=== PATIENT | female | born 1950 | race Caucasian/White ===

== ENCOUNTER 2018-11-11 05:55 | Inpatient (IN) ==
--- NOTE | 2018-10-23 07:43 | History & Physical Report ---
Date of Service October 23, 2018 Assessment & Plan (1) Osteoarthritis of right knee: Further care discussed with patient and at this point in time has failed conservative measures and would like to proceed with a Right total knee replacement. Plan on discharge will be home with home health physical therapy. DVT prophalaxis with TEDs, SCDs and will also place on aspirin 81 mg p.o. b.i.d. for a month postop. Patient will have follow up appointment in our office two weeks post op for staple/suture removal and re-evaluation. Patient otherwise has no other questions or concerns. History of Present Illness Chief Complaint: Right Knee pain Primary Care Provider: Gregoria Corral Ms Domingo is a 68 year old female who is here for a PRE-OPERATIVE VISIT, SCHEDULED FOR RIGHT KNEE TKA TO BE PERFORMED BY DR. ALDANA ON 08/12/2018 @ [facility]. The symptoms occur intermittently. The problem is fluctuating. Currently the patient states that the symptoms are moderate-severe. The pain is described as aching, discomforting and throbbing. The symptoms occur intermittently. She rates her current pain as 5/10. The symptoms are aggravated by ascending stairs , descending stairs, daily activities, driving, first steps while awake, kneeling, movement, repetitive activities, sleeping on the affected side, squatting and walking. Maia states that the symptoms are relieved by no specific activity. In addition to right knee pain the patient is also experiencing decreased mobility, difficulty bending, difficulty going to sleep, limping, nighttime awakening, pain, stiffness, tenderness and weakness. Pertinent negatives include chills and fever. The patient has had a previous x- ray. Prior NSAIDs include Aleve and aspirin. She has been treated with a corticosteroid injection on the right side. Patient has been treated with previous visco supplementation. Patient has had previous therapy. She attended physical therapy. Patient has had arthroscopic surgery. Patient had previous right knee arthroscopy in 2000, performed by a provider in [place]. Patient has tried the use of knee brace and cane for ambulation. Allergies Allergy/AdvReac Type Severity Reaction Status Date / Time lisinopril AdvReac Cough Verified 09/19/18 08:03 STEROIDS AdvReac "JITTERY" Uncoded 09/19/18 08:03 Home Medications Home Medications Medication Instructions Recorded Confirmed Type betamethasone dipropionate 1 applic TOPICAL BID 07/11/18 09/19/18 History cholecalciferol (vitamin D3) 1,000 unit PO QAM 07/11/18 09/19/18 History [Vitamin D3] lactobacillus combination no.4 3,000 mmu cells PO DAILY 07/11/18 09/19/18 History [Probiotic] levothyroxine 125 mcg PO QAM 07/11/18 09/19/18 History losartan 100 mg PO QAM 07/11/18 09/19/18 History multivitamin 1 tab PO QAM 07/11/18 09/19/18 History omega 6-uvk-zwi-fish oil [Clune-3] 1 tab PO DAILY 07/11/18 09/19/18 History omeprazole 20 mg PO QPM 07/11/18 09/19/18 History ranitidine HCl 150 mg PO BID 07/11/18 09/19/18 History zolpidem 1 tab PO HS 07/11/18 09/19/18 History atenolol 50 mg PO DAILY 09/19/18 09/19/18 History sertraline 25 mg PO HS 09/19/18 09/19/18 History Past Med/Surg History Medical History Anxiety GERD (gastroesophageal reflux disease) CONTROLLED Hypertension Hypothyroidism Irritable bowel Obesity Osteoarthritis Spinal stenosis Surgical History H/O arthroscopy of left knee H/O arthroscopy of right knee H/O colonoscopy H/O esophagogastroduodenoscopy H/O tubal ligation Hx of tonsillectomy S/P foot surgery, left Social History Current Living Situation: Alone Other Information That Helps Us Care for You: No Feels Safe at Home: Yes Safety Concerns: Feels Safe At This Time Smoking Status: Never smoker Do You Dip or Chew Tobacco: No Second Hand Exposure: No Hx Alcohol Use: Yes Alcohol type: wine Hx Substance Use: No Beliefs That Will Affect Care: None Preferred Language: [place] Rican Communication Ability: Effective Quarry Manager Required: No Review of Systems All systems reviewed & are unremarkable except as noted in HPI & below Physical Exam 2 Constitutional: WD/WN, vitals as above well developed and well nourished; no acute distress Respiratory: normal respiratory effort, lungs clear to auscultation Cardiovascular: RRR, no murmur, no edema Gastrointestinal (Abdomen): normal bowel sounds, soft, nontender, no hepatosplenomegaly Musculoskeletal: Right Knee Physical Exam Strength LE * Hip ROM R * Active ROM - Flexion: 120 degrees, Abduction: 45 degrees, Adduction: 30 degrees , Internal: 10 degrees, External: 20 degrees, Factors: pain, Description: Active painful ROM. Knee ROM L * Active ROM - Flexion: 135 degrees, Extension: 0 degrees, Factors: normal, Description: active pain free range of motion. Passive ROM - Flexion: 135 degrees, Extension: 0 degrees, Factors: normal, Description: passive pain free range of motion. Knee ROM R * Active ROM - Flexion: 125 degrees, Extension: 3 degrees, Factors: pain. Passive ROM - Flexion: 125 degrees, Extension: 3 degrees, Factors: normal, Description: passive pain free range of motion. Strength LE Normal Strength Description - Normal lower extremity: Bilateral. Constitutional Normal No acute distress. Well nourished. Well developed. Hip * Gait: normal. Inspection - Alignment - Right: neutral, Clinical. Swelling - Right: mild. Maximum tenderness - Right: Greater Trochanteric. Abdominal - Right : 5/5. Hip Normal Skin - Right: Normal. Knee * Inspection - Gait: Antalgic. Alignment - Right: varus, Left: neutral. Ecchymosis - Right: negative, Left: none. Effusion - Right: mild, Left: negative. Swelling - Right: mild, Left: none. Flexibility - Right: normal, Left : normal. Maximum tenderness - Right: Medial Joint Line, Left: non-tender. Patella exam - Crepitation - Right: negative, Left: negative. Patella position - Right: neutral, Left: neutral. Tilt - Right: equal, Left: normal. [facility]'s - medial - Right: Positive. Knee Normal Inspection - Atrophy - Right: Absent, Left: Absent. Skin - Right: Normal, Left: Normal. Patella exam - Apprehension - Right: Negative, Left: Negative. Q-angle - Right: Normal, Left: Normal. Yakov's - Right: Negative, Left: Negative. [facility]'s - lateral - Right: Negative, Left: Negative. Megan's - medial - Left: Negative. Posterior drawer - Right: Negative, Left: Negative. Reverse pivot-shift - Right: Negative, Left: Negative. Sag sign - Right: Negative, Left : Negative. Anterior drawer - Right: Negative, Left: Negative. Valgus stress - Right: Negative, Left: Negative. Varus stress - Right: Negative, Left: Negative. Extensor lag - Right: Normal, Left: Normal. Neurovascular LE Normal Neurovascular examination including reflexes, sensation, and pulses is within normal limits. Skin: no rashes, warm and dry Results & Data Diagnostic Findings X-Rays: xrays showing loss of joint space medial compartment, patellofemoral joint. osteophytes noted, subchondral sclerosis, no acute bony pathology.
--- NOTE | 2018-11-03 13:08 | Anesthesiology Consultation ---
Date of Service November 03, 2018 Assessment & Plan (1) Encounter for pre-operative examination: Plan: PCP= 07/23/18= "optimized for knee replacement." Chart Review Chart Review: Acceptable Risk for Surgery and Patient NOT seen in Pre Admission Testing History Surgery Operation Date: 11/11/18 11:10 Proposed Procedures p Right Total Knee Arthroplasty - Gary Donaldson, Height/Weight Height: 5 ft 7 in Weight: 92.986 kg Allergies Allergy/AdvReac Type Severity Reaction Status Date / Time lisinopril AdvReac Cough Verified 09/19/18 08:03 STEROIDS AdvReac "JITTERY" Uncoded 09/19/18 08:03 Medications Home Medications Medication Instructions Recorded Confirmed Last Taken betamethasone dipropionate 1 applic TOPICAL BID 07/11/18 09/19/18 Unknown cholecalciferol (vitamin D3) 1,000 unit PO QAM 07/11/18 09/19/18 Unknown [Vitamin D3] lactobacillus combination no.4 3,000 mmu cells PO DAILY 07/11/18 09/19/18 Unknown [Probiotic] levothyroxine 125 mcg PO QAM 07/11/18 09/19/18 Unknown losartan 100 mg PO QAM 07/11/18 09/19/18 Unknown multivitamin 1 tab PO QAM 07/11/18 09/19/18 Unknown omega 7-jpd-wgo-fish oil [Cherry-3] 1 tab PO DAILY 07/11/18 09/19/18 Unknown omeprazole 20 mg PO QPM 07/11/18 09/19/18 Unknown ranitidine HCl 150 mg PO BID 07/11/18 09/19/18 Unknown zolpidem 1 tab PO HS 07/11/18 09/19/18 Unknown atenolol 50 mg PO DAILY 09/19/18 09/19/18 Unknown sertraline 25 mg PO HS 09/19/18 09/19/18 Unknown Past Medical History Medical History Anxiety GERD (gastroesophageal reflux disease) CONTROLLED Hypertension Hypothyroidism Irritable bowel Obesity Osteoarthritis Spinal stenosis Past Surgical History Surgical History H/O arthroscopy of left knee H/O arthroscopy of right knee H/O colonoscopy H/O esophagogastroduodenoscopy H/O tubal ligation Hx of tonsillectomy S/P foot surgery, left Social History Smoking Status: Never smoker Do You Dip or Chew Tobacco: No Hx Alcohol Use: Yes Alcohol type: wine Hx Substance Use: No Testing Electrocardiogram Date: 07/14/18 Findings: + NSR @ (67) Echocardiogram Date: 03/13/18 No RWMA. EF 60%. No significant valvular disease. Laboratory Results 10/30/18 WBC 8.66 H/H 13.0/42.1 PLATELETS 194 SODIUM 140 POTASSIUM 3.9 CHLORIDE 104 CO2 104 BUN 18.1 CREATININE 0.88 GLUCOSE 91 PT 11.4 INR 1.02 UA NEGATIVE
[2018-11-11] MEDS ORDERED: METOCLOPRAMIDE HCL 10 MG TABLET PO SCH (06:00)
[2018-11-11] MEDS ORDERED: CeleBREX 200 MG CAP PO SCH (06:00)
[2018-11-11] MEDS ORDERED: FAMOTIDINE 20 MG TAB PO SCH (06:00)
[2018-11-11] MEDS ORDERED: GABAPENTIN 300 MG PO SCH (06:00)
[2018-11-11] MEDS ORDERED: dexAMETHasone 4 MG TAB PO SCH (06:00)
[2018-11-11] MEDS ORDERED: TRANEXAMIC ACID 1,000 MG **IV Pre-op IV SCH (06:00)
[2018-11-11] MEDS ORDERED: ACETAMINOPHEN 500 MG TAB PO SCH (06:00)
[2018-11-11] MEDS ORDERED: ROPIVACAINE 0.5% HCL/PF 150 MG, BUPIVACAINE 0.5% MPF 30 ML, EPINEPHrine 30MG/30ML (OR U... INFIL SCH (06:00)
[2018-11-11] MEDS ORDERED: CEFAZOLIN 2000MG 2,000 MG/15 ML SYR IV SCH (06:00)
[2018-11-11] MEDS ORDERED: TRANEXAMIC ACID 1,000 MG **IV Intra-op IV SCH (06:30)
[2018-11-11] MEDS ORDERED: BUPIVACAINE 0.5 % 5 MG/1 ML PF 10ML VIAL ONE (06:31)
[2018-11-11] MEDS ORDERED: ROPIVACAINE 0.5% 5 MG/ML 30 ML VIAL ONE (06:31)
[2018-11-11] MEDS ORDERED: fentaNYL citrate 100 MCG/2 ML VIAL ONE (06:58)
[2018-11-11] MEDS ORDERED: MIDAZOLAM HCL 1 MG/ML 2ML VIAL ONE (06:58)
--- NOTE | 2018-11-11 07:01 | History & Physical Bridge Note ---
Date of Service November 11, 2018 History & Physical Bridge Note I have examined the patient, reviewed the History & Physical and in the interval since the performance of the History & Physical I have noted the following changes of clinical significance: no changes noted
[2018-11-11] MEDS: LR 500ML BOLUS, THEN 15ML/HR IV SCH (07:06)
[2018-11-11] MEDS ORDERED: fentaNYL citrate 100 MCG/2 ML VIAL IV PRN (07:30)
[2018-11-11] MEDS ORDERED: ONDANSETRON INJ 2 MG/ML 2 ML VIAL IV PRN ×2 (07:30→11:33)
[2018-11-11] MEDS ORDERED: ePHEDrine sulfate 50 MG/ML AMP IV PRN (07:30)
[2018-11-11] MEDS ORDERED: ATROPINE SULFATE 0.1 MG/ML 10ML SYR IV PRN (07:30)
[2018-11-11] MEDS ORDERED: POVIDONE-IODINE OP SOLN 30 ML BTL ONE (07:46)
[2018-11-11] MEDS ORDERED: ORTHO JOINT ANESTHETIC ONE (07:46)
[2018-11-11] MEDS ORDERED: BACITRACIN INJ 50,000 UNIT VIAL ONE (07:47)
[2018-11-11] MEDS ORDERED: ePHEDrine sulfate 50 MG/ML SYR ONE (08:44)
[2018-11-11] MEDS ORDERED: PROPOFOL IV EMULSION 10 MG/ML 20 ML VIAL IV ONE (08:44)
[2018-11-11] MEDS ORDERED: LIDOCAINE HCL 2% 2 ML VIAL/AMP(20MG/ML) INFIL ONE (08:44)
--- NOTE | 2018-11-11 09:25 | Operative Report ---
Post Operative Report Pre & Post Diagnosis Operation Date: 11/11/18 08:35 Pre-Op Diagnosis: Right Knee Osteoarthritis Post-Op Diagnosis: Right Knee Osteoarthritis Procedure Operation Date: 11/11/18 08:35 Actual Procedures p Right Total Knee Arthroplasty(Right) utilizing [employer] journey to non- bloc total knee arthroplasty size femur right 5 tibia 5 polyethylene 11 patella 32 esau Donaldson DO Surgeon Gary Donaldson DO Refrigerator Repairman Dez WEBB Estimated Blood Loss 10 Findings Consistent with Post-Op Diagnosis Patient presents with severe end-stage tricompartmental degenerative joint disease with varus alignment subchondral bone cystic changes marginal osteophytes eburnated bone with varus alignment to the knee when pseudo- ligamentous laxity due to bone loss of medial tibia is also moderate to large effusion patient failed attempts at conservative management including physical therapy anti-inflammatories injections presents for total knee arthroplasty Specimens Bone and cartilage Drains Medium bore Hemovac Complications none Disposition Accompanied Patient To Recovery: No Disposition: Recovery Room Indications Patient presents being seen today with points of ongoing pain trouble to her right knee no response to conservative therapy with previous attempts at injections corticosteroid injections Visco supplementation bracing physical therapy relative rest activity modification is failed she presents today for right total knee arthroplasty Description of Procedure After proper prepping and draping of the Right lower extremity anterior midline incision was made over the region of the extensor extensor mechanism after meticulous hemostasis was obtained and maintained in subcutaneous tissues a medial parapatellar incision was made The patella was subluxed lateralward the medial lateral gutter were cleaned from any hypertrophic synovitis and scar tissue of the distal femoral block was placed and the distal femoral osteotomy cut was made subsequently the chamfers anterior and posterior osteotomy cuts were made utilizing the 4-in-1 block the tibia was subsequently subluxed anteriorward medial and ateral meniscal remnants were excised in their entirety remnants of the anterior and posterior cruciate ligaments were excised in their entirety excellent exposure of the proximal tibia was obtained the tibial osteotomy guide was placed on the proximal tibial osteotomy cut was made once again the knee was irrigated with copious amounts of sterile saline solution the patella was subsequently everted lateralward thickened scar tissue around the patella was removed the patella was subsequently cut utilizing a freehand technique and was drilled prepared for final preparation and placement of patella socially flexion-extension gaps were checked and the equal and symmetric trials were placed to the appropriate femoral and tibial trials with poly-spacer being placed for equal flexion and extension gaps and full range of motion including extension to 0 and flexion to 140 the trial components after having been taken to recovery range of motion was subsequently removed meticulous hemostasis was obtained and maintained subsequently a knee block injection of joint cocktail including ropivacaine 0.5% 150 mg. Bupivacaine 0.5 % epinephrine 1-200,030 mL's toradol 30 mg dexamethasone 4 mg ketamine 10 mg clonidine 100 micrograms normal saline solution 30 mg was infiltrated into the soft tissues of the posterior knee medial lateral gutters and periosteal synovium special attention was paid to protect neurovascular structures at all times subsequently trial components having been removed the knee was irrigated with sterile saline solution. debris was removed the proximal tibia was subsequently prepared and was made ready for the placement of the tibial component tibial component was also cemented and tamped into position the femoral component was subsequently placed and cemented in the position the patellar component was subsequently cemented in position because hemostasis once again obtained and maintained wound having been thoroughly irrigated with debridement and debridement lavage was performed as well as a medial parapatellar incision closed with #1 Vicryl in interrupted fashion subcutaneous was closed with #2 Vicryl skin was closed with skin clips. PA-C was necessary for prepping and drapping as well as wound closure of deep fascia Sub cutaneous tissue and skin and was necessary for the case. A sterile compressive dressing was placed patient was taken to recovery in stable condition of report dictated by Mendoza I attest to the content of the Intraoperative Record and any orders documented therein. Any exceptions are noted below. I attest to the content of the Intraoperative Record and any orders documented therein. Any exceptions are noted below.
--- NOTE | 2018-11-11 10:46 | XRay Report ---
RIGHT KNEE 2 VIEWS History: Right total knee arthroplasty. Degenerative arthritis. Postop. FINDINGS: The patient is status post a right total knee arthroplasty. The hardware is intact. No frac ture or dislocation. Surgical drains are in place. IMPRESSION: Right total knee arthroplasty. No evidence for hardware complication. Electronically signed by: Michael Russell M.D. 11/11/2018 10:45 AM
--- NOTE | 2018-11-11 10:58 | Anesthesiology Progress Note ---
Date of Service November 11, 2018 Anesthesia Post Procedure Vital Signs Vital Signs: Temp Pulse Pulse Resp BP Pulse Ox 11/11/18 10:50 47 L 13 119/70 100 11/11/18 10:40 50 L 14 124/75 100 11/11/18 10:30 50 L 10 L 122/69 100 11/11/18 10:20 52 L 12 119/70 100 11/11/18 10:10 36.4 C L 54 L 17 106/61 99 11/11/18 07:08 36.8 C 52 L 18 163/89 H 97 Pain Intensity Right Knee: Pain Intensity: 0 Notes Mental Status: alert / awake / arousable Patient Amnestic to Procedure: Yes Nausea / Vomiting: adequately controlled Pain: adequately controlled Airway Patency, RR, SpO2: stable & adequate BP & HR: stable & adequate Hydration State: stable & adequate Neuraxial Anesthesia: was administered and sensory block is resolving Anesthetic Complications: no major complications apparent and Pt Satisfied with anesthetic care
[2018-11-11] MEDS ORDERED: MAGNESIUM HYDROXIDE SUSP 30 ML UDC PO PRN (11:33)
[2018-11-11] MEDS ORDERED: ALUMINUM/MAGNESIUM SUSP 30 ML UDC PO PRN (11:33)
[2018-11-11] MEDS ORDERED: MoRPHine SULFATE 2 MG/ML CARP IV PRN (11:33)
[2018-11-11] MEDS: SODIUM CHLORIDE 0.9% 1000ML 1,000 ML IV SCH ×2 (12:12→22:31)
--- NOTE | 2018-11-11 12:22 | Internal Medicine Consult Note ---
Date of Consultation November 11, 2018 Assessment & Plan (1) Hypertension: Patient typically takes atenolol 50 and losartan 100. Her blood pressure is acceptable but her post pulse is slightly low we will hold her losartan on 11/12 restarting it on 11/13 (2) Hypothyroidism: Patient typically takes Synthroid 125 this will be continued (3) Depression: Patient typically takes Zoloft 25 this will be continued (4) Osteoarthritis of right knee: OPERATION DATE/TIME 11/11/18 08:35 Right Total Knee Arthroplasty Surgeon: Gary Donaldson (5) Allergy: continue loratidine History of Present Illness Attending Physician: Gary Donaldson, DO History of Present Illness Pt was seen in the company of her daughter, she has no issues she was instructed on proper use of the incentive spirometer by myself Allergies Allergy/AdvReac Type Severity Reaction Status Date / Time Corticosteroids AdvReac Mild JITTERY Verified 11/11/18 12:27 (Glucocorticoids) lisinopril AdvReac Mild Cough Verified 11/11/18 12:27 Home Medications Home Medications Medication Instructions Recorded Confirmed Type betamethasone dipropionate 1 applic TOPICAL BID 07/11/18 09/19/18 History cholecalciferol (vitamin D3) 1,000 unit PO QAM 07/11/18 11/11/18 History [Vitamin D3] lactobacillus combination no.4 3,000 mmu cells PO DAILY 07/11/18 11/11/18 History [Probiotic] levothyroxine 125 mcg PO QAM 07/11/18 11/11/18 History losartan 100 mg PO QAM 07/11/18 11/11/18 History multivitamin 1 tab PO QAM 07/11/18 11/11/18 History omega 1-lvt-muy-fish oil [Alleene-3] 1 tab PO DAILY 07/11/18 11/11/18 History omeprazole 20 mg PO QPM 07/11/18 11/11/18 History ranitidine HCl 150 mg PO BID 07/11/18 11/11/18 History zolpidem 1 tab PO HS 07/11/18 09/19/18 History atenolol 50 mg PO DAILY 09/19/18 11/11/18 History sertraline 25 mg PO HS 09/19/18 11/11/18 History Patient History Medical History Anxiety GERD (gastroesophageal reflux disease) CONTROLLED Hypertension Hypothyroidism Irritable bowel Obesity Osteoarthritis Spinal stenosis Surgical History H/O arthroscopy of left knee H/O arthroscopy of right knee H/O colonoscopy H/O esophagogastroduodenoscopy H/O tubal ligation Hx of tonsillectomy S/P foot surgery, left Social History Current Living Situation: Alone Other Information That Helps Us Care for You: No Feels Safe at Home: Yes Safety Concerns: Feels Safe At This Time Smoking Status: Never smoker Do You Dip or Chew Tobacco: No Hx Alcohol Use: Yes Alcohol type: wine Hx Substance Use: No Beliefs That Will Affect Care: None Preferred Language: Macanese Communication Ability: Effective Flight Communications Specialist Required: No Review of Systems Constitutional: + fatigue and + weakness Respiratory: no cough, no chest congestion and no dyspnea Cardiovascular: no chest pain and no dyspnea on exertion Gastrointestinal: no abdominal pain, no nausea and no vomiting Musculoskeletal: + joint pain (expected post op pain); no swelling Integumentary: no rash and no lesions Physical Exam 2 Vital Signs (Past 24 Hours): Last Vital Signs Temp 36.4 C L 11/11/18 11:59 Pulse 50 L 11/11/18 11:59 Resp 16 11/11/18 11:59 BP 124/74 11/11/18 11:59 Pulse Ox 100 11/11/18 11:59 Constitutional: well developed and well nourished Eyes: PERRL, conjunctivae normal, anicteric sclerae Neck: trachea midline Thyroid: normal thyroid Respiratory: normal respiratory effort, lungs clear to auscultation Cardiovascular: RRR, no murmur, no edema Gastrointestinal (Abdomen): normal bowel sounds, soft, nontender, no hepatosplenomegaly Skin: no rashes, warm and dry Neurologic: PERRL, EOMI, accommodation nl, no face palsy, no dysarthria Psychiatric: A+Ox3, euthymic affect
[2018-11-11] MEDS: ACETAMINOPHEN 500 MG TAB PO SCH ×2 (14:17→22:32)
[2018-11-11] MEDS: CEFAZOLIN 2000MG 2,000 MG/15 ML SYR IV SCH (15:33)
[2018-11-11] MEDS: SENNA 8.6 MG TAB PO SCH (21:00)
[2018-11-11] MEDS: CeleBREX 200 MG CAP PO SCH (21:00)
[2018-11-11] MEDS: DOCUSATE SODIUM 100 MG CAP PO SCH (21:00)
[2018-11-11] MEDS: ASPIRIN 81 MG ECTAB PO SCH (21:00)
[2018-11-11] MEDS: PANTOprazole 40 MG TAB PO SCH (21:01)
[2018-11-11] MEDS: BETAMETHASONE DIP AUG (DIPROLENE) 0.05% CR 15 GM TUBE EXT SCH (21:01)
[2018-11-11] MEDS: SERTRALINE HCL 50 MG TABLET PO SCH (21:02)
[2018-11-11] MEDS: ZOLPIDEM TARTRATE 10 MG TAB PO SCH (22:32)
[2018-11-12] MEDS: CEFAZOLIN 2000MG 2,000 MG/15 ML SYR IV SCH (00:32)
[2018-11-12] MEDS: OXYCODONE HCL IR 5 MG TAB (IMMEDIATE RELEASE) PO PRN ×4 (02:28→22:44)
[2018-11-12] MEDS: ACETAMINOPHEN 500 MG TAB PO SCH ×3 (06:12→22:44)
[2018-11-12] MEDS: LEVOTHYROXINE SODIUM 125 MCG TABLET PO SCH (06:16)
[2018-11-12 06:38] LABS: Hematocrit (blood only) 31.7 % (37-47); Hemoglobin 10.2 g/dL (12.0-16.0); Mean Corpuscular Hgb Conc 32.2 g/dL (32-36); Mean Corpuscular Volume 86.6 fL (80-100); Mean Platelet Volume 11.5 fL (7.4-10.4); Platelet Count 160 K/uL (130-400); RDW Coefficient of Variation 14.1 % (11.5-14.5); RDW Standard Deviation 44.5 fL (36.4-46.3); Red Blood Count 3.66 M/uL (4.2-5.4); White Blood Count 13.58 K/uL (4.8-10.8)
[2018-11-12 07:03] LABS: BUN Creatinine Ratio 15.4 (10-20); Creatinine Clr Calc Pharmacy 93.5 ml/min; Est GFR (African American) 104.6; Est GFR (Non-African American) 90.3; Potassium 4.2 mmol/L (3.5-5.1)
--- NOTE | 2018-11-12 07:58 | Orthopedic Progress Note ---
Date of Service November 12, 2018 Assessment & Plan (1) History of total right knee replacement (TKR): POD #1 s/p Right TKA pt/ot dvt proph with RUCHI/SCD/ASA patient would like rehab will discuss with CM, has 14 steps into her home. Subjective POD #1 s/p right TKA Constitutional: no fever, no chills and no sweats Respiratory: no cough and no dyspnea Cardiovascular: no chest pain Physical Exam 2 Vital Signs (Past 24 Hours): Last Vital Signs Temp 36.5 C 11/12/18 07:50 Pulse 50 L 11/12/18 07:50 Resp 16 11/12/18 03:54 BP 162/82 H 11/12/18 07:50 Pulse Ox 100 11/12/18 07:50 Musculoskeletal: NVDI, calf SNT, negative barbara sign. DP palpable, able to wiggle toes/ankle movement without difficulty. dressing clean dry and intact. Results & Data Laboratory Results Vital Signs Temp 36.5 C 11/12/18 07:50 Pulse 50 L 11/12/18 07:50 Resp 16 11/12/18 03:54 BP 162/82 H 11/12/18 07:50 Pulse Ox 100 11/12/18 07:50 Intake & Output 11/11/18 11/12/18 11/12/18 18:59 06:59 18:59 Intake Total 2206.667 / 2206.667 1763.333 / 1763.333 Output Total 1979 / 1979 1425 / 1425 Balance 226.667 / 226.667 338.333 / 338.333 Weight 94.801 kg Intake: IV 706.667 / 200.946 4655.333 / 1213.333 Lr 1,000 ml @ 999 mls/hr IV . 500 / 500 Q1H1M NICOLAS Rx#:[id number] Nss 1000ML 1,000 ml @ 100 mls/ 206.667 / 206.667 993.333 / 993.333 hr IV .Q10H NICOLAS Rx#:[id number] IV Perioperative 1200 / 1200 Oral 300 / 300 550 / 550 Output: Urine 1625 / 1625 1200 / 1200 Estimated Blood Loss 10 / 10 Drain Output 345 / 345 225 / 225 Right Knee Hemovac 345 / 345 225 / 225 Laboratory Results WBC 13.58 K/uL (4.8-10.8) H 11/12/18 06:25 RBC 3.66 M/uL (4.2-5.4) L 11/12/18 06:25 Hgb 10.2 g/dL (12.0-16.0) L 11/12/18 06:25 Hct 31.7 % (37-47) L 11/12/18 06:25 MCV 86.6 fL (80-100) 11/12/18 06:25 MCH 27.9 pg (25-34) 11/12/18 06:25 MCHC 32.2 g/dL (32-36) 11/12/18 06:25 RDW Std Deviation 44.5 fL (36.4-46.3) 11/12/18 06:25 RDW Coeff of Gris 14.1 % (11.5-14.5) 11/12/18 06:25 Plt Count 160 K/uL (130-400) 11/12/18 06:25 MPV 11.5 fL (7.4-10.4) H 11/12/18 06:25 Sodium 137 mmol/L (136-145) 11/12/18 06:25 Potassium 4.2 mmol/L (3.5-5.1) 11/12/18 06:25 Chloride 108 mmol/L (98-107) H 11/12/18 06:25 Carbon Dioxide 26 mmol/L (21-32) 11/12/18 06:25 Anion Gap 3.0 (3-11) 11/12/18 06:25 BUN 11 mg/dl (7-18) 11/12/18 06:25 Creatinine 0.70 mg/dl (0.6-1.2) 11/12/18 06:25 Est Cr Clr Drug Dosing 93.5 ml/min 11/12/18 06:25 Est GFR ( Amer) 104.6 11/12/18 06:25 Est GFR (Non-Af Amer) 90.3 11/12/18 06:25 BUN/Creatinine Ratio 15.4 (10-20) 11/12/18 06:25 Glucose 89 mg/dl (70-99) 11/12/18 06:25 Calcium 8.0 mg/dl (8.5-10.1) L 11/12/18 06:25 Blood Type B Positive 11/11/18 06:15 Antibody Screen NEGATIVE 11/11/18 06:15
[2018-11-12] MEDS ORDERED: LOSARTAN POTASSIUM 50 MG TAB PO SCH (09:00)
[2018-11-12] MEDS: DOCUSATE SODIUM 100 MG CAP PO SCH ×2 (09:03→20:07)
[2018-11-12] MEDS: LORATADINE 10 MG TAB PO SCH (09:03)
[2018-11-12] MEDS: CeleBREX 200 MG CAP PO SCH ×2 (09:03→20:07)
[2018-11-12] MEDS: BETAMETHASONE DIP AUG (DIPROLENE) 0.05% CR 15 GM TUBE EXT SCH ×2 (09:04→20:10)
[2018-11-12] MEDS: MULTIVITAMIN TAB PO SCH (09:05)
[2018-11-12] MEDS: LACTOBACILLUS ACIDOPHILUS (FLORANEX) TAB PO SCH (09:05)
[2018-11-12] MEDS: ASPIRIN 81 MG ECTAB PO SCH ×2 (09:05→20:07)
[2018-11-12] MEDS: ATENOLOL 50 MG TABLET PO SCH (09:06)
--- NOTE | 2018-11-12 11:01 | Anesthesiology Progress Note ---
Date of Service November 12, 2018 Anesthesia Post Procedure Vital Signs Vital Signs: Temp Pulse Pulse Pulse Resp BP Pulse Ox 11/12/18 07:50 36.5 C 50 L 16 162/82 H 100 11/12/18 03:54 36.5 C 53 L 16 134/69 97 11/11/18 23:44 36.6 C 59 L 16 118/66 96 11/11/18 19:07 36.7 C 56 L 16 125/72 95 11/11/18 15:15 36.7 C 49 L 16 134/76 96 11/11/18 14:20 36.6 C 54 L 16 131/75 96 11/11/18 13:15 56 L 18 111/68 99 11/11/18 12:22 49 L 18 119/77 100 11/11/18 11:59 36.4 C L 50 L 16 124/74 100 11/11/18 11:34 36.4 C L 51 L 16 130/76 97 Pain Intensity Right Knee: Pain Intensity: 0 Notes Mental Status: alert / awake / arousable and participated in evaluation Patient Amnestic to Procedure: Yes Nausea / Vomiting: adequately controlled Pain: adequately controlled Airway Patency, RR, SpO2: stable & adequate BP & HR: stable & adequate Hydration State: stable & adequate Neuraxial Anesthesia: was administered and sensory block resolved Anesthetic Complications: no major complications apparent and Pt Satisfied with anesthetic care
[2018-11-12] MEDS: LR 500ML BOLUS, THEN 15ML/HR IV SCH ×4 (19:02→19:24)
--- NOTE | 2018-11-12 19:24 | Family Medicine Progress Note ---
Date of Service November 12, 2018 Assessment & Plan (1) History of total right knee replacement (TKR): Ms Maia Domingo is a 68 year old woman who we were consulted for on post op day 1 with asymptomatic bradycardia BRADYCARDIA Obtained 12 lead EKG which showed sinus bradycardia Asymptomatic no hypotension, no orthostasis Not concerning at this time HYPERTENSION Blood Pressure elevated today 162/82 Losartan held today for concern of orthostatic hypotension which might inhibit ability to participate in PT Will resume tomorrow morning Continue atenolol at home dose. HYPOTHYROIDISM Continue home synthroid DEPRESSION Continue home sertraline (2) Bradycardia: (3) Hypertension: (4) Hypothyroidism: (5) Depression: (6) Allergy: Supervising Physician Co-Signing Physician Notes I personally examined the patient and verified all mittal points of history and exam, discussed case, and agree with decision making with Dr Lester. Feeling okay in general, she is worried about when she might start to feel knee pain, but she is not really feeling any now. No other complaints right now. Vitals noted, in general she is in no acute distress. Breathing is unlabored no accessory muscle use, right knee is wrapped, skin shows no rashes, no pallor , no icterus. Hypertensionagree with holding off on VICKY receptor wisam for now, given literature is not doing so reduce his perioperative renal impairment and joint replacements. Likely this can safely be resumed tomorrow. Her pressure is running a little high but certainly not in an acute concerning range given her lack of symptoms. Bradycardia-asymptomatic. EKG is sinus DVT prophylaxisper orthopedics Otherwise as above Subjective Maia Domingo is a 68 year old woman who is post op day 1 from her right total knee arthroscopywe are consulted on for bradycardia. She reports no symptoms besides her knee pain. She currently takes atenolol 50mg and losartan 100mg for her hypertension. She has no complaints at this time and is willing and able to participate in all therapy. Constitutional: no fever, no chills, no body aches, no fatigue and no weakness Respiratory: no cough, no chest congestion and no dyspnea Cardiovascular: no chest pain, no dyspnea, no palpitations, no lightheadedness and no syncope Gastrointestinal: no nausea and no vomiting Physical Exam 2 Vital Signs (Past 24 Hours): Last Vital Signs Temp 36.7 C 11/12/18 15:44 Pulse 49 L 01/09/19 15:44 Resp 16 11/12/18 15:44 BP 121/70 11/12/18 15:44 Pulse Ox 97 11/12/18 15:44 Constitutional: well developed and well nourished; no acute distress Respiratory: normal respiratory effort, lungs clear to auscultation Cardiovascular: RRR, no murmur, no edema Gastrointestinal (Abdomen): Inspection/Auscultation: abdomen normal to inspection; abdomen not distended Percussion/Palpation: abdomen soft; abdomen nontender
[2018-11-12] MEDS: SENNA 8.6 MG TAB PO SCH (20:07)
[2018-11-12] MEDS: SERTRALINE HCL 50 MG TABLET PO SCH (20:07)
[2018-11-12] MEDS: PANTOprazole 40 MG TAB PO SCH (20:07)
[2018-11-12] MEDS: ZOLPIDEM TARTRATE 10 MG TAB PO SCH (22:43)
[2018-11-13] MEDS: LEVOTHYROXINE SODIUM 125 MCG TABLET PO SCH (06:10)
[2018-11-13] MEDS: ACETAMINOPHEN 500 MG TAB PO SCH ×2 (06:14→13:40)
--- NOTE | 2018-11-13 07:28 | Orthopedic Progress Note ---
Date of Service November 13, 2018 Assessment & Plan (1) History of total right knee replacement (TKR): POD #2 s/p Right TKA pt/ot dvt proph with RUCHI/SCD/ASA after doing PT yesterday, patient feels ok to go home. will d/c home with HHPT later today Subjective POD #2 s/p right TKA denies CP/SOB denies Fever/Chills Physical Exam 2 Vital Signs (Past 24 Hours): Last Vital Signs Temp 36.6 C 11/12/18 23:13 Pulse 58 L 11/12/18 23:13 Resp 16 11/12/18 23:13 BP 114/72 11/12/18 23:13 Pulse Ox 97 11/12/18 23:13 Musculoskeletal: NVDI, calf SNT, negative barbara sign. DP palpable, able to wiggle toes/ankle movement without difficulty. prineo dressing clean dry and intact. expected post-operative bruising noted.
[2018-11-13] MEDS: CeleBREX 200 MG CAP PO SCH (08:57)
[2018-11-13] MEDS: MULTIVITAMIN TAB PO SCH (08:57)
[2018-11-13] MEDS: LORATADINE 10 MG TAB PO SCH (08:57)
[2018-11-13] MEDS: ATENOLOL 50 MG TABLET PO SCH (08:58)
[2018-11-13] MEDS: DOCUSATE SODIUM 100 MG CAP PO SCH (08:59)
[2018-11-13] MEDS: LACTOBACILLUS ACIDOPHILUS (FLORANEX) TAB PO SCH (08:59)
[2018-11-13] MEDS: ASPIRIN 81 MG ECTAB PO SCH (08:59)
[2018-11-13] MEDS ORDERED: LOSARTAN POTASSIUM 50 MG TAB PO SCH (09:00)
[2018-11-13] MEDS: BETAMETHASONE DIP AUG (DIPROLENE) 0.05% CR 15 GM TUBE EXT SCH (09:01)
[2018-11-13] MEDS: OXYCODONE HCL IR 5 MG TAB (IMMEDIATE RELEASE) PO PRN ×2 (09:10→13:39)
--- NOTE | 2018-11-13 22:00 | Family Medicine Progress Note ---
Date of Service November 13, 2018 Assessment & Plan (1) History of total right knee replacement (TKR): Ms Maia Domingo is a 68 year old woman who we were consulted for on post op day 2 with asymptomatic bradycardia BRADYCARDIA Obtained 12 lead EKG which showed sinus bradycardia Asymptomatic no hypotension, no orthostasis Not concerning at this time HYPERTENSION Atenolol held today Advised restarting losartan Okay to discharge on home medications and follow up with PCP for any hypertensive changes HYPOTHYROIDISM Continue home synthroid DEPRESSION Continue home sertraline (2) Bradycardia: (3) Hypertension: (4) Hypothyroidism: (5) Depression: (6) Allergy: Supervising Physician Co-Signing Physician Notes I personally examined the patient and verified all mittal points of history and exam, discussed case, and agree with decision making with Dr Lester. Feeling okay in general, ready to go home Vitals noted, in general she is in no acute distress. Breathing is unlabored no accessory muscle use, right knee is wrapped, skin shows no rashes, no pallor , no icterus. Hypertensionresume home meds, outpt f/u Bradycardia-asymptomatic. EKG is sinus, outpt f/u DVT prophylaxisper orthopedics Otherwise as above, medically stable for home Subjective Maia Domingo is a 68 year old woman who is post op day 2 from her right total knee arthroscopy we are consulted on for bradycardia. She reports no symptoms besides her knee pain. She currently takes atenolol 50mg and losartan 100mg for her hypertension. She has no complaints at this time and has been doing well with physical therapy. Physical Exam 2 Vital Signs (Past 24 Hours): Last Vital Signs Temp 36.7 C 11/13/18 13:33 Pulse 51 L 11/13/18 13:33 Resp 16 11/13/18 13:33 BP 114/75 11/13/18 13:33 Pulse Ox 98 11/13/18 13:33 Constitutional: well developed and well nourished; no acute distress Respiratory: normal respiratory effort, lungs clear to auscultation Cardiovascular: RRR, no murmur, no edema Gastrointestinal (Abdomen): Inspection/Auscultation: abdomen normal to inspection; abdomen not distended Percussion/Palpation: abdomen soft; abdomen nontender
--- NOTE | 2018-11-17 18:10 | Discharge Summary ---
DISCHARGE DIAGNOSIS: Degenerative joint disease, right knee. SECONDARY DIAGNOSES: Anxiety, gastroesophageal reflux disease, hypertension, hypothyroidism, irritable bowel syndrome, obesity, osteoarthritis, spinal stenosis. CONSULTS: Dr. Davies. COMPLICATIONS: None. PROCEDURES: Right total knee arthroplasty performed by Dr. Donaldson on 11/11/2018. BRIEF HISTORY: As dictated in history and physical. HOSPITAL SUMMARY: The patient was admitted on the above date and had the above-noted surgery performed, which she tolerated well. On first postoperative day, the patient was without complaints and was feeling well. Vital signs are stable, afebrile. Neurovascularly intact. Calves are soft, nontender. Dressings clean, dry and intact and the patient was started on physical therapy protocol and continued on DVT prophylaxis and pain management. Hemoglobin was 10.2 and the patient was continued on medical management per [facility]. By the second postoperative day, the patient was doing well, had no complaints. Vital signs were stable, afebrile. Neurovascularly intact. Calves are soft, nontender. Prineo dressing was clean, dry and intact and remaining medically stable. They will continue on her PT protocol and was progressing well and the patient was remaining stable and Medicine Service felt that the patient was medically stable for discharge and they were discharged to home with home health services. For further review, please see chart. LABORATORY AND X-RAY DATA: As per chart. DISCHARGE INSTRUCTIONS: The patient was discharged to home in satisfactory condition on 11/13/2018. DIET: Regular. ACTIVITY: Weightbearing as tolerated on the right lower extremity with walker. Follow TK instruction sheets and special care instructions as noted. Follow up with Dr. Donaldson in 2 weeks. The patient is to call for appointment if one has not been made for you. DISCHARGE MEDICATIONS: Acetaminophen 1000 mg p.o. q. 8 hours, aspirin 81 mg p.o. b.i.d. for 30 days, betamethasone 1 application exterior b.i.d., Celebrex 200 mg p.o. b.i.d., Colace 100 mg p.o. b.i.d., levothyroxine 125 mcg p.o. daily, loratadine 10 mg p.o. q.a.m., oxycodone 5-10 mg p.o. q. 4 hours p.r.n. Resume home meds as listed.
== END 2018-11-13 16:24 | disposition home health service (06) | DRG 470 ==
LOC: ASU 05:55 → 3E 10:20
DX: Z79.899 Other long term (current) drug therapy; K58.9 Irritable bowel syndrome, unspecified; F32.9 Major depressive disorder, single episode, unspecified; Z88.8 Allergy status to other drugs, medicaments and biological substances; E03.9 Hypothyroidism, unspecified; M17.11 Unilateral primary osteoarthritis, right knee; K21.9 Gastro-esophageal reflux disease without esophagitis; M21.161 Varus deformity, not elsewhere classified, right knee; M25.461 Effusion, right knee; R00.1 Bradycardia, unspecified; F41.9 Anxiety disorder, unspecified; Z91.09 Other allergy status, other than to drugs and biological substances; I10 Essential (primary) hypertension; Z68.32 Body mass index [BMI] 32.0-32.9, adult; E66.9 Obesity, unspecified

== ENCOUNTER 2022-11-28 06:41 | Observation (INO) ==
--- NOTE | 2022-11-01 14:42 | PAT Medication Instructions ---
Medication Instructions Date of Service November 01, 2022 Home Medications Medication Instructions Recorded oxycodone 5 mg tablet 5 - 10 mg PO Q4H PRN pain #30 tabs 11/13/18 betamethasone dipropionate 0.05 % topical cream 1 applic topical BID PRN cholecalciferol (vitamin D3) 25 mcg (1,000 unit) tablet (Vitamin D3) 1,000 unit PO QAM lactobacillus combination no.4 3 billion cell capsule (Probiotic) 3,000 mmu cells PO QAM levothyroxine 125 mcg tablet 125 mcg PO QAM losartan 100 mg tablet 100 mg PO QAM multivitamin 1 tab PO QAM omeprazole 20 mg capsule,delayed release 20 mg PO HS zolpidem 10 mg tablet 1 tab PO HS atenolol 50 mg tablet 50 mg PO PM sertraline 50 mg tablet 25 mg PO HS oxycodone 5 mg tablet 5 - 10 mg PO Q4H PRN acetaminophen 500 mg tablet (Pain Reliever (acetaminophen)) 1,000 mg PO Q8 PRN famotidine 20 mg tablet (Pepcid) 20 mg PO QAM STOP taking 24 hours before surgery betamethasone dipropionate 0.05 % topical cream 1 applic topical BID PRN DO NOT take the morning of surgery cholecalciferol (vitamin D3) 25 mcg (1,000 unit) tablet (Vitamin D3) 1,000 unit PO QAM lactobacillus combination no.4 3 billion cell capsule (Probiotic) 3,000 mmu cells PO QAM losartan 100 mg tablet 100 mg PO QAM multivitamin 1 tab PO QAM Take morning of surgery With a small sip of water, OTHERWISE NOTHING TO EAT OR DRINK AFTER MIDNIGHT: levothyroxine 125 mcg tablet 125 mcg PO QAM oxycodone 5 mg tablet 5 - 10 mg PO Q4H PRN(if needed) acetaminophen 500 mg tablet (Pain Reliever (acetaminophen)) 1,000 mg PO Q8 PRN (if needed) famotidine 20 mg tablet (Pepcid) 20 mg PO QAM Take evening before surgery omeprazole 20 mg capsule,delayed release 20 mg PO HS zolpidem 10 mg tablet 1 tab PO HS atenolol 50 mg tablet 50 mg PO PM sertraline 50 mg tablet 25 mg PO HS oxycodone 5 mg tablet 5 - 10 mg PO Q4H PRN(if needed) acetaminophen 500 mg tablet (Pain Reliever (acetaminophen)) 1,000 mg PO Q8 PRN (if needed) Other Notes If you have any questions please call us at [phone] or [phone] or [phone] or [phone]
--- NOTE | 2022-11-08 12:19 | Anesthesiology Consultation ---
Date of Service November 08, 2022 Assessment & Plan (1) Encounter for pre-operative examination: - Case discussed in detail with Dr. Wilson who advised pt is acceptable to proceed with surgery without further evaluation or testing from his standpoint. - Outpatient joint assessment: Patient is currently scheduled for inpatient pathway. If re-evaluated pending system levels during current pandemic/surgeon requests outpatient pathway, patient is acceptable candidate for outpatient joint program from anesthesia standpoint pending surgeon's office assessment of pt motivation/support/completion of same day joint program preop requirements. Chart Review Chart Review: Acceptable Risk for Surgery and Patient seen in Pre Admission Testing Teaching & Discussion Pre-Anesthesia Teaching/Discussion Notes: Instructed NPO after midnight before surgery, except medications with 15 cc of water. Medication instructions provided according to the PAT guidelines. History Surgery Operation Date: 11/21/22 11:00 Proposed Procedures p Left Total Knee Arthroplasty - Gary Donaldson DO Height/Weight Height: 5 ft 7 in Weight: 103.9 kg Allergies Allergy/AdvReac Type Severity Reaction Status Date / Time Corticosteroids AdvReac Mild JITTERY Verified 11/01/22 13:11 (Glucocorticoids) lisinopril AdvReac Mild Cough Verified 11/01/22 13:11 Medications Home Medications Medication Instructions Recorded Confirmed Last Taken betamethasone dipropionate 0.05 % 1 applic topical BID PRN Rash 07/11/18 Unknown topical cream cholecalciferol (vitamin D3) 25 1,000 unit PO QAM 07/11/18 11/01/22 11/08/18 mcg (1,000 unit) tablet (Vitamin D3) lactobacillus combination no.4 3 3,000 mmu cells PO QAM 07/11/18 11/01/22 11/08/18 billion cell capsule (Probiotic) levothyroxine 125 mcg tablet 125 mcg PO QAM 07/11/18 11/01/22 11/10/18 losartan 100 mg tablet 100 mg PO QAM 07/11/18 11/01/22 11/10/18 multivitamin 1 tab PO QAM 07/11/18 11/01/22 11/04/18 omeprazole 20 mg capsule,delayed 20 mg PO HS 07/11/18 11/01/22 11/10/18 21:30 release zolpidem 10 mg tablet 1 tab PO 07/11/18 11/01/22 Unknown atenolol 50 mg tablet 50 mg PO PM 09/19/18 11/01/22 11/11/18 05:00 sertraline 50 mg tablet 25 mg PO HS 09/19/18 11/01/22 11/10/18 19:00 oxycodone 5 mg tablet 5 - 10 mg PO Q4H PRN pain #30 tabs 11/13/18 11/01/22 Unknown acetaminophen 500 mg tablet (Pain 1,000 mg PO Q8 PRN Pain 11/01/22 11/01/22 Unknown Reliever (acetaminophen)) famotidine 20 mg tablet (Pepcid) 20 mg PO QAM 11/01/22 11/01/22 Unknown Past Medical History Medical History Anxiety associated palpitations, denies associated lightheadedness or dizziness or other instances of palpitations GERD (gastroesophageal reflux disease) controlled, stable per pt Hiatal hernia History of COVID-22 April 2022 > not hospitalized Hypertension controlled, stable per pt Hypothyroidism Irritable bowel Obesity Spinal stenosis Patient denies h/o stroke, seizures, heart attack, heart failure, DM, blood clots or blood transfusions. Exercise / Class Metabolic Activity II 4-5 Yardwork/Stairs/Walk up hill (occ SOB with 1 FOS, denies CP) Past Surgical History Surgical History H/O arthroscopy of left knee H/O arthroscopy of right knee H/O colonoscopy H/O esophagogastroduodenoscopy H/O tubal ligation History of breast biopsy benign History of cataract surgery bilat History of total right knee replacement 11/11/18 SAB at L3-L4 1 attempt + PNB. Hx of tonsillectomy S/P foot surgery, left Past Anesthesia History No Hx of Anesthesia Complications and No Family Hx of Anesthesia Complications History of PONV No Hx of PONV and No Hx of Motion Sickness Social History Smoking Status: Never smoker Do You Dip or Chew Tobacco: No Hx Alcohol Use: No Hx Substance Use: No substance use type: does not use Review of Systems Snoring, denies witnessed apneas. Pt reports intermittent headaches since cataract surgery noticing association to stress with her mother's illness and adjusting to reading glasses s/p cataract surgery. Denies change or worsening. Patient denies chest pain, shortness of breath, dyspnea on exertion, fever, chills, cough, or wheezing. Physical Exam Vital Signs Vitals BP 153/84 P 54 TEMP 98.3 SP02 98% on RA RESP 17 Physical Full cervical extension range of motion without pain TMD 3.5 finger breadths Mallampati Score 3 Dentition: intact, partial bridge left upper side; denies chipped or loose teeth, or implants Lungs: normal respiratory effort. Clear throughout to auscultation, no adventitious breath sounds Cardiac: regular rate and rhythm, no murmurs noted Carotid arteries: negative bruit bilat Lab Results Anesthesia Preop Results Results Anesthesia Widget: WBC 8.96 K/ul (4.8-10.8) 11/08/22 Hgb 13.3 g/dl (12.0-16.0) 11/08/22 Hct 40.5 % (34.1-44.9) 11/08/22 Plt 191 K/uL (130-400) 11/08/22 Na 136 mmol/L (136-145) 11/08/22 K 4.4 mmol/L (3.5-5.1) 11/08/22 Cl 100 mmol/L (98-107) 11/08/22 CO2 30 mmol/L (21-32) 11/08/22 BUN 20 mg/dl (6-23) 11/08/22 Creat 0.90 mg/dl (0.6-1.2) 11/08/22 Glucose Level 112 mg/dl (70-99(Fasting)) H 11/08/22 PT 10.3 Seconds (9.0-12.0) 11/08/22 PTT 28.2 Seconds (21.0-31.0) 11/08/22 INR 1.0 (0.9-1.1) 11/08/22 HA1c 6.3 % (4.5-5.6) H 11/08/22 Urine Color Yellow 11/08/22 Urine Appearance Clear (Clear) 11/08/22 Urine pH 6.0 (4.5-7.5) 11/08/22 Urine Specific [place] 1.014 (1.000-1.030) 11/08/22 Urine Protein Negative (Negative) 11/08/22 Urine Glucose (UA) Negative (Negative) 11/08/22 Urine Ketones Negative (Negative) 11/08/22 Urine Blood Negative (Negative) 11/08/22 Urine Nitrite Negative (Negative) 11/08/22 Urine Bilirubin Negative (Negative) 11/08/22 Urine Urobilinogen Negative (Negative) 11/08/22 Urine Leukocyte Esterase Negative (Negative) 11/08/22 Blood Type B Positive 11/08/22 Antibody Screen NEGATIVE 11/08/22 Testing Electrocardiogram Date: 11/08/22 Sinus bradycardia, rate 56 bpm Chest X-Ray Date: 11/08/22 No lines and tubes are seen. The cardiomediastinal silhouette is normal. The lungs are clear. No evidence of pleural effusion or pneumothorax. IMPRESSION: No acute chest disease. Stress Test Date: 04/01/19 Exercise MPHR 78% METS 7 Uninterpretable for ischemia per report as patient did not achieve target HR COVID-19 Risk Screen Screening Information COVID-19 Screen Date: 11/08/22 Exposure 21 Days Family/Household +COVID Last 21 Days: No Exposure 10 Days Any COVID Exposure Last 10 Days: No Symptoms Last 10 Days Experienced COVID Sx Last 10 Days: No + COVID 0-90 Days COVID + in Last 0-90 Days: No
--- NOTE | 2022-11-08 12:24 | History & Physical Report ---
Date of Service November 08, 2022 date of surgery: 11/21/22 Procedure: Left Total Knee Arthroplasty Surgeon: Gary Donaldson Assessment & Plan (1) Arthritis of knee, left: Plan: Risks and benefits of procedure discussed in detail today, patient would like to proceed with a left total knee replacement at [facility] as scheduled. will obtain medical clearance prior to surgery as well as obtain PATs at [facility]. Will place on ASA 81mg po bid x 1 month post op, f/u 2 weeks post op for routine post-operative care and x-ray, sooner if having any problems. will make arrangements for HHPT at the time of discharge. At this point in time, has failed conservative measures and would like to proceed with surgical intervention. The risks and benefits have been discussed including, but not limited to, risk of infection, nerve injury, stiffness, loss of motion, failure to improve, etc. Reasonable outcomes and options of treatment were discussed. An explanation of appropriate alternatives to the procedure that may be advantageous were discussed and their risks and benefits, as well as the risks and benefits of not proceeding with treatment. I offered to answer any additional inquiries concerning the treatment involved. All the patient's questions were answered. The patient is agreeable, understanding of the treatment plan and alternatives, and wishes to proceed with the treatment plan History of Present Illness Chief Complaint: left knee pain Primary Care Provider: Gregoria Corral Maia is a pleasant 72-year-old female who presents for preop evaluation prior to left total knee replacement. She has been having pain in this knee for many years now which is gradually worsened and is now affecting her daily activities including walking standing using stairs. She has tried and failed prior corticosteroid injection as well as viscosupplementation without relief. She is tried oral anti-inflammatories and Tylenol as well. at This point time her pain is affecting her daily activities and like to proceed with a left total knee replacement Allergies Allergy/AdvReac Type Severity Reaction Status Date / Time Corticosteroids AdvReac Mild JITTERY Verified 11/01/22 13:11 (Glucocorticoids) lisinopril AdvReac Mild Cough Verified 11/01/22 13:11 Home Medications Medication Instructions Recorded Confirmed Type betamethasone dipropionate 0.05 % 1 applic topical BID PRN Rash 07/11/18 11/01/22 History topical cream cholecalciferol (vitamin D3) 25 1,000 unit PO QAM 07/11/18 11/01/22 History mcg (1,000 unit) tablet (Vitamin D3) lactobacillus combination no.4 3 3,000 mmu cells PO QAM 07/11/18 11/01/22 History billion cell capsule (Probiotic) levothyroxine 125 mcg tablet 125 mcg PO QAM 07/11/18 11/01/22 History losartan 100 mg tablet 100 mg PO QAM 07/11/18 11/01/22 History multivitamin 1 tab PO QAM 07/11/18 11/01/22 History omeprazole 20 mg capsule,delayed 20 mg PO HS 07/11/18 11/01/22 History release zolpidem 10 mg tablet 1 tab PO HS 07/11/18 11/01/22 History atenolol 50 mg tablet 50 mg PO PM 09/19/18 11/01/22 History sertraline 50 mg tablet 25 mg PO HS 09/19/18 11/01/22 History oxycodone 5 mg tablet 5 - 10 mg PO Q4H PRN pain #30 tabs 11/13/18 11/01/22 Rx acetaminophen 500 mg tablet (Pain 1,000 mg PO Q8 PRN Pain 11/01/22 11/01/22 History Reliever (acetaminophen)) famotidine 20 mg tablet (Pepcid) 20 mg PO QAM 11/01/22 11/01/22 History Past Med/Surg History Medical History Anxiety associated palpitations, denies associated lightheadedness or dizziness or other instances of palpitations GERD (gastroesophageal reflux disease) controlled, stable per pt Hiatal hernia History of COVID-22 April 2022 > not hospitalized Hypertension controlled, stable per pt Hypothyroidism Irritable bowel Obesity Spinal stenosis Surgical History H/O arthroscopy of left knee H/O arthroscopy of right knee H/O colonoscopy H/O esophagogastroduodenoscopy H/O tubal ligation History of breast biopsy benign History of cataract surgery bilat History of total right knee replacement 11/11/18 SAB at L3-L4 1 attempt + PNB. Hx of tonsillectomy S/P foot surgery, left Social History Smoking Status: Never smoker Second Hand Exposure: No; Hx Alcohol Use: No Hx Substance Use: No Preferred Language: Greenlandic Communication Ability: Effective Pathology Teacher Required: No Beliefs That Will Affect Care: None Current Living Situation: Spouse Feels Safe at Home: Yes Assistive Devices: Glasses Review of Systems Review of Systems: All systems reviewed & are unremarkable except as noted in HPI & below Constitutional: no fever, no chills and no sweats Respiratory: no cough and no dyspnea Cardiovascular: no chest pain, no dyspnea and no orthopnea Gastrointestinal: no abdominal pain, no nausea and no vomiting Musculoskeletal: as per Subjective / HPI Physical Exam Physical Exam: HT: 5ft 7in WT: 103.9kg Constitutional: WD/WN, vitals as above no acute distress Respiratory: normal respiratory effort, lungs clear to auscultation no respiratory distress, no labored breathing and does not use accessory muscles Cardiovascular: RRR, no murmur, no edema Gastrointestinal (Abdomen): normal bowel sounds, soft, nontender, no hepatosplenomegaly Musculoskeletal: Knee: + knee abnormal to inspection (LEFT KNEE: ), + effusion (+1 effusion), + limited ROM of knee (ROM 0/3/110), + knee ROM with crepitation, + joint line tenderness (medial joint line) and + Hazel's sign positive; no deformity, no skin erythema, no ecchymosis, no valgus laxity, no varus laxity, anterior drawer test negative, Yakov's sign negative and pivot shift test negative Results & Data Results & Data ([facility]) Diagnostic Findings Left Knee X-ray: left knee series confirm advanced degenerative changes to the left knee, greatest medial compartments and patellofemoral joint, showing joint space narrowing, osteophyte formation and subchondral sclerosis. no acute bony pathology noted.
[~2022-11-28 06:41] MED LIST: ACETAMINOPHEN 500 MG TAB PO SCH; BUPIVACAINE 0.5 % 5 MG/1 ML PF 10ML VIAL ONE; CeleBREX 200 MG CAP PO SCH; EPINEPHrine INJ 1 MG/ML AMP ONE; FAMOTIDINE 20 MG TAB PO SCH; GABAPENTIN 300 MG CAP PO SCH; LR 500ML BOLUS, THEN 15ML/HR IV SCH; METOCLOPRAMIDE HCL 10 MG TABLET PO SCH; ROPIVACAINE 0.5% 5 MG/ML 30 ML VIAL ONE; ROPIVACAINE 0.5% HCL/PF 150 MG, BUPIVACAINE 0.75% MPF 20 ML, EPINEPHrine 30MG/30ML (OR ... INSTIL SCH; TRANEXAMIC ACID 1,000 MG **IV Intra-op IV SCH; TRANEXAMIC ACID 1,000 MG **IV Pre-op IV SCH; ceFAZolin 2000MG 2,000 MG/15 ML SYR IV SCH; dexAMETHasone 4 MG TAB PO SCH
[2022-11-28] MEDS ORDERED: MIDAZOLAM HCL 1 MG/ML 2ML VIAL ONE ×2 (06:53)
--- NOTE | 2022-11-28 07:43 | History & Physical Bridge Note ---
Date of Service November 28, 2022 History & Physical Bridge Note I have examined the patient, reviewed the History & Physical and in the interval since the performance of the History & Physical I have noted the following changes of clinical significance: no changes noted
[2022-11-28] MEDS ORDERED: ORTHO JOINT ANESTHETIC ONE (09:54)
[2022-11-28] MEDS ORDERED: PROPOFOL IV EMULSION 10 MG/ML 20 ML VIAL IV ONE (10:09)
--- NOTE | 2022-11-28 12:33 | Operative Report ---
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 I identified the patient and participated in the time-out.: Yes Procedure Left total knee arthroplasty utilizing [employer] journey to an en bloc total knee arthroplasty size femur 5 tibia for polyten patella 32 oval Operation Date: 11/28/22 09:05 <No data on this case meets the specified criteria> Surgeon Gary Donaldson DO Clinical Evaluator TRACEY Corral Estimated Blood Loss 5 Findings Consistent with Post-Op Diagnosis Patient presents with severe end-stage tricompartmental degenerative joint disease left knee no response to conservative management the patient presents for total knee arthroplasty Specimens Bone card Drains Medium bore Hemovac Anesthesia Type MAC Epidural Regional Complications none Disposition Accompanied Patient To Recovery: No Disposition: Recovery Room Indications Patient presents severe end-stage DJD left knee no response to conservative management patient presents for right total knee arthroplasty patient failed attempted corticosteroid injection viscosupplementation relative rest activity modification Description of Procedure After proper prepping and draping of the left lower extremity anterior midline incision was made over the region of the extensor extensor mechanism after meticulous hemostasis was obtained and maintained in subcutaneous tissues a medial parapatellar incision was made The patella was subluxed lateralward the medial lateral gutter were cleaned from any hypertrophic synovitis and scar tissue of the distal femoral block was placed and the distal femoral osteotomy cut was made subsequently the chamfers anterior and posterior osteotomy cuts were made utilizing the 4-in-1 block the tibia was subsequently subluxed anteriorward medial and ateral meniscal remnants were excised in their entirety remnants of the anterior and posterior cruciate ligaments were excised in their entirety excellent exposure of the proximal tibia was obtained the tibial osteotomy guide was placed on the proximal tibial osteotomy cut was made once again the knee was irrigated with copious amounts of sterile saline solution the patella was subsequently everted lateralward thickened scar tissue around the patella was removed the patella was subsequently cut utilizing a freehand technique and was drilled prepared for final preparation and placement of patella socially flexion-extension gaps were checked and the equal and symmetric trials were placed to the appropriate femoral and tibial trials with poly-spacer being placed for equal flexion and extension gaps and full range of motion including extension to 0 and flexion to 140 the trial components after having been taken to recovery range of motion was subsequently removed meticulous hemostasis was obtained and maintained subsequently a knee block injection of joint cocktail including ropivacaine 0.5% 150 mg. Bupivacaine 0.5% epinephrine 1-200,030 mL's toradol 30 mg dexamethasone 4 mg ketamine 10 mg clonidine 100 micrograms normal saline solution 30 mg was infiltrated into the soft tissues of the posterior knee medial lateral gutters and periosteal synovium special attention was paid to protect neurovascular structures at all times subsequently trial components having been removed the knee was irrigated with sterile saline solution. debris was removed the proximal tibia was subsequently prepared and was made ready for the placement of the tibial component tibial component was also cemented and tamped into position the femoral component was subsequently placed and cemented in the position the patellar component was subsequently cemented in position because hemostasis once again obtained and maintained wound having been thoroughly irrigated with debridement and debridement lavage was performed as well as a medial parapatellar incision closed with #1 Vicryl in interrupted fashion subcutaneous was closed with #2 Vicryl skin was closed with skin clips. PA-C was necessary for prepping and drapping as well as wound closure of deep fascia Sub cutaneous tissue and skin and was necessary for the case. A sterile compressive dressing was placed patient was taken to recovery in stable condition of report dictated by Mendoza I attest to the content of the Intraoperative Record and any orders documented therein. Any exceptions are noted below.Due to the complex nature of the procedure, the entire surgery was performed with the operational assistance ofantionette Anderson. TRACEY the pastry assistant, under direct supervision, was involved in the actual performance of all aspects of the surgical procedure including hemostasis, tissue retraction and incision, instrument management, patient positioning, and wound closure. I attest to the content of the Intraoperative Record and any orders documented therein. Any exceptions are noted below.
--- NOTE | 2022-11-28 12:54 | XRay Report ---
LEFT KNEE 2 VIEWS History: Left total knee arthroplasty. Degenerative arthritis. Postop. FINDINGS: The patient is status post a left total knee arthroplasty. The hardware is intact. No fract ure or dislocation. Surgical drains are in place. IMPRESSION: Left total knee arthroplasty. No evidence for hardware complication. ACT 112: Negative or not required by law. Electronically signed by: Michael Russell M.D. 11/28/2022 12:53 PM
--- NOTE | 2022-11-28 12:55 | Anesthesiology Progress Note ---
Date of Service November 28, 2022 Anesthesia Post Procedure Vital Signs Vital Signs: Temp Pulse Pulse Resp BP Pulse Ox O2 Del Method 11/28/22 12:50 57 L 12 122/66 97 Room Air 11/28/22 12:40 59 L 13 116/75 96 Room Air 11/28/22 12:30 54 L 12 114/69 96 Room Air 11/28/22 12:20 56 L 14 119/83 97 Room Air 11/28/22 12:10 56 L 13 117/64 95 Room Air 11/28/22 12:00 55 L 15 115/63 94 Room Air 11/28/22 11:50 58 L 16 108/59 L 94 Room Air 11/28/22 11:40 36.4 C L 60 15 105/58 L 95 Room Air 11/28/22 07:02 37.1 C 61 20 136/80 96 Room Air Transfer of Care Handoff Completed per policy Notes Mental Status: alert / awake / arousable and participated in evaluation Nausea / Vomiting: adequately controlled Pain: adequately controlled Airway Patency, RR, SpO2: stable & adequate BP & HR: stable & adequate Hydration State: stable & adequate Neuraxial Anesthesia: was administered and sensory block is resolving Anesthetic Complications: no major complications apparent and Pt Satisfied with anesthetic care
[2022-11-28] MEDS ORDERED: HYDROmorphone INJ 0.5 MG/0.5 ML SYR IV PRN (13:33)
[2022-11-28] MEDS ORDERED: bisacodyL 10 MG SUPP PR PRN (13:33)
[2022-11-28] MEDS ORDERED: ONDANSETRON INJ 2 MG/ML 2 ML VIAL IV PRN (13:33)
[2022-11-28] MEDS ORDERED: diphenhydrAMINE Capsule 25 MG CAP PO PRN (13:33)
[2022-11-28] MEDS ORDERED: METOCLOPRAMIDE HCL INJ 5 MG/ML 2 ML VIAL IV PRN (13:33)
[2022-11-28] MEDS ORDERED: MAGNESIUM HYDROXIDE SUSP 30 ML UDC PO PRN (13:33)
[2022-11-28] MEDS ORDERED: NALOXONE HCL 0.4 MG/1 ML VIAL/CARP IV PRN (13:33)
[2022-11-28] MEDS ORDERED: KETOROLAC TROMETHAMINE 15 MG/ML VIAL IV PRN (13:33)
[2022-11-28] MEDS ORDERED: ALUMINUM/MAGNESIUM SUSP 30 ML UDC PO PRN (13:33)
[2022-11-28] MEDS: SODIUM CHLORIDE 0.9% 1000ML 1,000 ML IV SCH (14:32)
[2022-11-28] MEDS: ACETAMINOPHEN 500 MG TAB PO SCH ×2 (14:43→22:00)
--- NOTE | 2022-11-28 15:14 | Hospitalist Consultation ---
Date of Consultation November 28, 2022 Assessment & Plan (1) Status post left knee replacement: -Patient is currently afebrile, hemodynamically stable, and stable on RA -Pain control, DVT PPX, perioperative abx, and IV fluids per the primary team -Agree with scheduled pantoprazole while the patient is on NSAIDs for pain control -Argree with AM CBC and BMP -We will sign off at this time but will follow-up on am labs tomorrow -Please contact us with any questions or concerns (2) Hypertension: -Agree with continuing atenlol tonight if she is hemdynamically stable and restarting Losartan tomorrow (3) Hypothyroidism: -Continue levothyroxine (4) Depression: -Continue sertraline (5) GERD (gastroesophageal reflux disease): -Agree with pantoprazole while the patient is on NSAIDs for stress ulcer PPX -Resume home omeprazole on DC Plan The patient was discussed with Dr. Laird at the time of the consult History of Present Illness Reason for Consultation: Post-op medical management Requesting Physician: Gary Donaldson DO Attending Physician: Dr. Juan A Laird History of Present Illness Maia is a 72 yr old female with a PMH significant for hypothyroidism, HTN, GERD, OA, and tobacco use disorder who presented to the [facility] on 11/28/22 for elective Left total knee arthroplasty with Dr. Gary Donaldson. Per the operative report, there were no reported intraoperative complications, anesthesia was listed as "MAC Epidural Regional", and EBL was listed as 5 cc. Review of the patient's vitals signs since hospital arrival show that she has been afebrile, initially having soft BPs of 105/58 around 11 am but has been otherwise hemodynamically stable, and stable on RA. At the time of the exam the patient was resting comfortably in bed in no acute distress. She has been able to eat and void since arriving to her room and has no complaints at the time of my exam. Her left LE still feels numb from the nerve block at this time. She did not take her AM dose of Losartan today and she takes her Atenlol HS. She does not use Oxygen or HS CPAP/Bipap. Please refer to Dr. gallo for any changes to the treatment plan. Allergies Allergy/AdvReac Type Severity Reaction Status Date / Time Corticosteroids AdvReac Mild JITTERY Verified 11/28/22 07:06 (Glucocorticoids) lisinopril AdvReac Mild Cough Verified 11/28/22 07:06 Home Medications Medication Instructions Recorded Confirmed Type betamethasone dipropionate 0.05 % 1 applic topical BID PRN Rash 07/11/18 11/28/22 History topical cream cholecalciferol (vitamin D3) 25 1,000 unit PO QAM 07/11/18 11/28/22 History mcg (1,000 unit) tablet (Vitamin D3) lactobacillus combination no.4 3 3,000 mmu cells PO QAM 07/11/18 11/28/22 History billion cell capsule (Probiotic) levothyroxine 125 mcg tablet 125 mcg PO QAM 07/11/18 11/28/22 History losartan 100 mg tablet 100 mg PO QAM 07/11/18 11/28/22 History multivitamin 1 tab PO QAM 07/11/18 11/28/22 History omeprazole 20 mg capsule,delayed 20 mg PO HS 07/11/18 11/28/22 History release zolpidem 10 mg tablet 1 tab PO HS 07/11/18 11/28/22 History atenolol 50 mg tablet 50 mg PO PM 09/19/18 11/28/22 History sertraline 50 mg tablet 25 mg PO HS 09/19/18 11/28/22 History oxycodone 5 mg tablet 5 - 10 mg PO Q4H PRN pain #30 tabs 11/13/18 11/28/22 Rx acetaminophen 500 mg tablet (Pain 1,000 mg PO Q8 PRN Pain 11/01/22 11/28/22 History Reliever (acetaminophen)) famotidine 20 mg tablet (Pepcid) 20 mg PO QAM 11/01/22 11/28/22 History Patient History Medical History (Updated 11/28/22 @ 15:29 by Iftikhar Herrmann PA-C) Anxiety associated palpitations, denies associated lightheadedness or dizziness or other instances of palpitations GERD (gastroesophageal reflux disease) controlled, stable per pt Hiatal hernia History of COVID-22 April 2022 > not hospitalized Hypertension controlled, stable per pt Hypothyroidism Irritable bowel Obesity Spinal stenosis Surgical History (Updated 11/28/22 @ 15:29 by Iftikhar Herrmann PA-C) H/O arthroscopy of left knee H/O arthroscopy of right knee H/O colonoscopy H/O esophagogastroduodenoscopy H/O tubal ligation History of breast biopsy benign History of cataract surgery bilat History of total right knee replacement 11/11/18 SAB at L3-L4 1 attempt + PNB. Hx of tonsillectomy S/P foot surgery, left Social History Smoking Status: Never smoker Second Hand Exposure: No; Do You Dip or Chew Tobacco: No; Tobacco Cessation Education Requested by Patient: No Hx Alcohol Use: Yes Alcohol type: wine Hx Substance Use: No Preferred Language: Swedish Communication Ability: Effective Workers Compensation Claims Analyst Required: No Beliefs That Will Affect Care: None Current Living Situation: Alone Other Information That Helps Us Care for You: No Feels Safe at Home: Yes Safety Concerns: Feels Safe At This Time Assistive Devices: Bedside Commode, Cane and Walker Review of Systems Review of Systems: Denies current fever, chills, headache, changes in vision, hearing, taste, and smell, chest pain, SOB, cough, abdominal pain, nausea, vomiting, diarrhea, hematemesis, melena, dysuria, hematuria, and recent falls. All systems have been reviewed and are otherwise negative. Physical Exam Physical Exam: Physical Exam: General: In no acute distress, stated age, well-nourished, good hygiene HEENT: Normocephalic, atraumatic, no scleral icterus, pupils around round, symmetrical, and reactive to light, moist mucus membranes, trachea midline, no thyromegaly Chest/Pulm: No respiratory distress, symmetrical chest expansion, clear breath sounds throughout Cardiac: RRR, no murmurs noted Abdomen: Negative for ascites and bruising, normoactive bowel sounds, soft, non-tender to palpation throughout Musculoskeletal: LLE currently wrapped and with brace in place without signs of drainage. Patient with intact motor function, can feel pressure, and with intact distal pulses in the LLE, RLE with a normal exam Extremities: Radial, dorsalis pedis, and posterior tibial pulses are intact and symmetrical, no edema noted in the BL LE's Skin: Warm, dry, no rashes , lesions, or scars noted Neuro: Alert and oriented to person, place, month, year, and president, no focal defects, CN II-XII tested and intact, finger to nose test negative, no tremors noted Psych: No acute distress, calm and cooperative during the exam Results & Data Results & Data ([facility]) Vital Signs (Past 12 Hours) Vital Signs Temp Pulse Pulse Resp BP Pulse Ox O2 Del Method 11/28/22 13:15 36.4 C L 56 L 15 120/74 96 Room Air 11/28/22 13:33 36.2 C L 56 L 15 136/80 97 Room Air 11/28/22 12:50 57 L 12 122/66 97 Room Air 11/28/22 12:40 59 L 13 116/75 96 Room Air 11/28/22 12:30 54 L 12 114/69 96 Room Air 11/28/22 12:20 56 L 14 119/83 97 Room Air 11/28/22 12:10 56 L 13 117/64 95 Room Air 11/28/22 12:00 55 L 15 115/63 94 Room Air 11/28/22 11:50 58 L 16 108/59 L 94 Room Air 11/28/22 11:40 36.4 C L 60 15 105/58 L 95 Room Air 11/28/22 07:02 37.1 C 61 20 136/80 96 Room Air Diagnostic Findings Knee X-Ray 11/28/22 11:49 LEFT KNEE 2 VIEWS History: Left total knee arthroplasty. Degenerative arthritis. Postop. FINDINGS: The patient is status post a left total knee arthroplasty. The hardware is intact. No fracture or dislocation. Surgical drains are in place. IMPRESSION: Left total knee arthroplasty. No evidence for hardware complication. ACT 112: Negative or not required by law. Electronically signed by: Michael Russell M.D. 11/28/2022 12:53 PM ECG Additional Comments: No ECG available at the time of the consult PG Care Time/CCT Total # of Minutes Spent Total Time Spent with Patient: Total time spent is greater than 50% in coordination of care (as documented) at patient's floor/unit and/or counseling patient: Coding Level of Care Code Established Pt INP/OBS CONSULT LVL 5, 80 MIN Patient Type Established Medical Decision Making Moderate Complexity Diagnoses Status post left knee replacement Z96.652 Hypertension I10 Hypothyroidism E03.9 Depression F32.9 GERD (gastroesophageal reflux disease) K21.9
[2022-11-28] MEDS ORDERED: TRANEXAMIC ACID / 0.7% NACL 1,000 MG/100 ML BAG IV SCH (17:45)
[2022-11-28] MEDS: ceFAZolin 2000MG 2,000 MG/15 ML SYR IV SCH (18:19)
[2022-11-28] MEDS: oxyCODONE HCL IR 5 MG TAB (IMMEDIATE RELEASE) PO PRN (19:55)
[2022-11-28] MEDS: ASPIRIN 81 MG ECTAB PO SCH (19:56)
[2022-11-28] MEDS: DOCUSATE SODIUM 100 MG CAP PO SCH (19:57)
[2022-11-28] MEDS ORDERED: ATENOLOL 50 MG TABLET PO SCH (21:00)
[2022-11-28] MEDS ORDERED: SERTRALINE HCL 50 MG TABLET PO SCH (21:00)
[2022-11-28] MEDS ORDERED: SENNA 8.6 MG TAB PO SCH (21:00)
[2022-11-28] MEDS ORDERED: ZOLPIDEM TARTRATE 10 MG TAB PO SCH (21:00)
[2022-11-28] MEDS ORDERED: PANTOprazole 40 MG TAB PO SCH (21:00)
[2022-11-28] MEDS: CeleBREX 200 MG CAP PO SCH (22:00)
[2022-11-28] MEDS: ALLERGY Noted to ORDERED Medication SCH ×6 (22:10→23:54)
[2022-11-29] MEDS: ceFAZolin 2000MG 2,000 MG/15 ML SYR IV SCH (01:15)
[2022-11-29] MEDS: SODIUM CHLORIDE 0.9% 1000ML 1,000 ML IV SCH (01:20)
[2022-11-29] MEDS: oxyCODONE HCL IR 5 MG TAB (IMMEDIATE RELEASE) PO PRN ×3 (02:35→11:23)
--- NOTE | 2022-11-29 06:02 | Orthopedic Progress Note ---
Date of Service November 29, 2022 Assessment & Plan (1) History of total left knee replacement: Admission and Anticipated Discharge Date Admission Date: November 28, 2022 Subjective POD #1 s/p Left TKA Review of Systems Constitutional: no fever, no chills and no sweats Respiratory: no cough and no dyspnea Cardiovascular: no chest pain and no dyspnea Gastrointestinal: no abdominal pain, no nausea and no vomiting Physical Exam Musculoskeletal: Left Leg: NVDI, calf SNT, negative barbara sign. DP palpable, able to wiggle toes/ankle movement without difficulty. dressing clean dry and intact. Results & Data ([facility]) Vital Signs (Past 12 Hours) Vital Signs Temp Pulse Resp BP Pulse Ox O2 Del Method 11/29/22 02:55 36.5 C 54 L 16 148/78 H 94 Room Air 11/28/22 23:11 36.5 C 56 L 16 140/67 96 Room Air 11/28/22 20:00 Room Air 11/28/22 19:18 36.7 C 61 18 127/71 96 Room Air
[2022-11-29] MEDS: ACETAMINOPHEN 500 MG TAB PO SCH (06:15)
[2022-11-29] MEDS ORDERED: LEVOTHYROXINE SODIUM 125 MCG TABLET PO SCH (06:30)
--- NOTE | 2022-11-29 06:39 | Orthopedic Progress Note ---
Date of Service November 29, 2022 Assessment & Plan (1) History of total left knee replacement: Plan: POD 1 s/p Left TKA PT/OT protocols. WBAT DVT prophylaxis - ASA po bid, SCD's Pain management as written DC planning - Home with HH Services today if progressing with PT. Admission and Anticipated Discharge Date Admission Date: November 28, 2022 Subjective POD 1 Pt awake, alert. No complaints. Had somewhat of a footdrop yesterday but returning to normal this AM. Denies SOB, CP, LH. Hoping to go home today. Pain controlled. Physical Exam Physical Exam: Dressings C/D/I. Calves soft,NT. NV intact. Toes mobile. Has good DF/PF of the left foot. Results & Data ([facility]) Vital Signs (Past 12 Hours) Vital Signs Temp Pulse Resp BP Pulse Ox O2 Del Method 11/29/22 02:55 36.5 C 54 L 16 148/78 H 94 Room Air 11/28/22 23:11 36.5 C 56 L 16 140/67 96 Room Air 11/28/22 20:00 Room Air 11/28/22 19:18 36.7 C 61 18 127/71 96 Room Air
[2022-11-29] MEDS: ASPIRIN 81 MG ECTAB PO SCH (08:18)
[2022-11-29] MEDS: CeleBREX 200 MG CAP PO SCH (08:19)
[2022-11-29] MEDS: DOCUSATE SODIUM 100 MG CAP PO SCH (08:19)
[2022-11-29 08:29] LABS: BUN Creatinine Ratio 22.6 (10-20); Calcium 8.5 mg/dl (8.5-10.1); Creatinine Clr Calc Pharmacy 69.7 ml/min; Est GFR (African American) 72.2 ml/min; Est GFR (Non-African American) 62.3 ml/min; Potassium 4.3 mmol/L (3.5-5.1)
[2022-11-29] MEDS ORDERED: LOSARTAN POTASSIUM 50 MG TAB PO SCH (09:00)
[2022-11-29] MEDS ORDERED: NON-FORMULARY MEDICATION (Multivitamin Tablet) PO SCH (09:00)
[2022-11-29] MEDS ORDERED: FAMOTIDINE 20 MG TAB PO SCH (09:00)
[2022-11-29] MEDS ORDERED: ADVANCED PROBIOTIC 1250 MG CAPSULE PO SCH (09:00)
[2022-11-29] MEDS ORDERED: CHOLECALCIFEROL 1,000 UNITS 25 MCG TAB PO SCH (09:00)
[2022-11-29] MEDS ORDERED: MULTIVITAMIN TAB PO SCH (09:00)
[2022-11-29 09:29] LABS: Hematocrit (blood only) 32.3 % (37.0-47.0); Hemoglobin 10.7 g/dl (12.0-16.0); Mean Corpuscular Hemoglobin 27.7 pg (25.0-34.0); Mean Corpuscular Hgb Conc 33.1 g/dL (32.0-36.0); Mean Corpuscular Volume 83.7 fL (80.0-100.0); Mean Platelet Volume 11.9 fL (9.4-12.4); Platelet Count 151 K/uL (130-400); RDW Coefficient of Variation 13.2 % (11.5-14.5); RDW Standard Deviation 40.7 fL (36.4-46.3); Red Blood Count 3.86 M/uL (4.20-5.40); White Blood Count 17.53 K/ul (4.8-10.8)
--- NOTE | 2022-11-30 14:08 | Discharge Summary ---
Date of Service November 30, 2022 Admission HPI Per Admitting Provider Maia is a pleasant 72-year-old female who presents for preop evaluation prior to left total knee replacement. She has been having pain in this knee for many years now which is gradually worsened and is now affecting her daily activities including walking standing using stairs. She has tried and failed prior corticosteroid injection as well as viscosupplementation without relief. She is tried oral anti-inflammatories and Tylenol as well. at This point time her pain is affecting her daily activities and like to proceed with a left total knee replacement Principal Diagnosis Left knee osteoarthritis Discharge Exam Constitutional WD/WN, vitals as above no acute distress Musculoskeletal Knee: + surgical incision (Left knee: AMPARO dressing functioning. C/D/I) and + surgical drain present (270 cc total); no skin erythema and no ecchymosis Skin no rashes, warm and dry Trauma: no evidence of skin trauma Neurologic normal touch/pain/proprioception Psychiatric A+Ox3, euthymic affect Speech: normal rate/rhythm/volume of speech Discharge Data Allergies Allergy/AdvReac Type Severity Reaction Status Date / Time Corticosteroids AdvReac Mild JITTERY Verified 11/28/22 07:06 (Glucocorticoids) lisinopril AdvReac Mild Cough Verified 11/28/22 07:06 Consultations 11/28/22 13:33 Consult Hospitalist Routine Procedures Performed Operation Date: 11/28/22 09:05 Actual Procedures p Left Total Knee Arthroplasty(Left) - Gary Swanson DO Ordered Studies 11/21/22 05:00 US - OR guided needle placemen Routine 11/28/22 05:00 US - OR guided needle placemen Routine Total Time Total Time Spent Total Time Spent (In Minutes): 20 Discharge Plan Discharge Items Patient Disposition: Home - Home Health Services Reason For Visit: Left Knee Osteoarthritis Discharge Diagnosis: Left knee osteoarthritis Activity: Per Instructions section Weightbearing: Left weightbearing Weightbearing Comment: as tolerated with walker Non-emergency contact: Surgeon Call non-emergency contact if: your pain is not controlled, your pain is worsening and your temperature is above 101 Follow-up/Referrals: Gary Swanson DO [Surgeon] - (follow up with Dr Swanson or his PA in 2 weeks from the day of surgery for your first post operative visit) Gregoria Corral M.D. [Primary Care Provider] - 12/05/22 2:00 pm Diet: Regular Addtl Attending Provider Instructions: ACTIVITY RECOMMENDATIONS: SELF CARE INSTRUCTIONS AFTER TOTAL KNEE REPLACEMENT A. You may need to continue a physical therapy program after discharge from the hospital. There are several options available to you. Your doctor will assist you in selecting the best one for you. 1. An out-patient facility 3 times a week for therapy. 2. Home therapy for 1 to 2 weeks with outpatient therapy to follow. 3. Continue working on all exercises taught by physical therapy three times a day for 20 minutes on non-therapy days. Your goals should be to increase the bending of your knee to 90 degrees and beyond and to fully straighten your knee. Ice and elevate knee after exercise. B. Weight as tolerated with a walker or as instructed by your physician. C. It is okay to shower if minimal to no drainage from incision. No Baths. Do not soak wound. D. Make walking a part of your daily routine. Be up as much as comfortable with rest periods throughout the day. Rest with leg elevation is very important. Use the ice wrap frequently for the first 3-4 weeks. E. There are no restrictions on activities. You may ride in a car, shop, participate in civil laboratory technician and all social activities. F. Wear the long elastic stockings (RUCHI hose) 20 hours a day for one month after surgery. They can be removed several times a day for laundering and when showering. G. AMPARO dressing: You have a AMPARO dressing on your surgical wound. It will remain in place for 7 days from surgery. You will be provided with a booklet with the do's and don'ts with the dressing in place. After 7 days, the dressing may be removed. If there is drainage from the surgical incision, you may cover the wound with dry dressings. H. You have the Dermabond Prineo dressing on your incision. It will be removed at your first post operative visit. If the ends begin to come off the skin, you may cut the edges of it. You will be able to begin showering when instructed. There will be instructions given to take home with you. SPECIAL CARE INSTRUCTIONS: VERY IMPORTANT TO READ AND REVIEW A. Take Aspirin (blood thinning medications) as directed by your doctor. If on Coumadin, have a pro-time (blood test) drawn according to your doctor's instructions. This will tell the doctor how well the Coumadin is thinning your blood. B. There are a few signs you need to watch for after you are home. Call [facility] if you notice any of the followin. Increased severe knee pain. Some pain is expected especially when you exercise. 2. Increased swelling in your leg or knee; pain or swelling of the calf muscle in either lower leg. 3. Any redness or fluid drainage from the incision. 4. Shortness of breath or chest pain. 5. A Temperature of 101 degrees F or greater. C. Please call [facility] at if you have any concerns or questions about your operation or recovery. The doctor or his nurse will return your call promptly. D. You must take antibiotics before dental work, bladder, bowel or other surgery. Your doctor will provide you with a permanent care to carry describing this precaution. FOLLOW UP VISIT: If appointment is not already scheduled: Please call [facility] to make a follow-up appointment for 2 weeks after your surgery at . Pending Studies at Discharge: No Stand-Alone Forms: My [facility], Smoking Cessation Medications and DC Order Prescriptions: New aspirin 81 mg Tablet,Delayed Release (Dr/Ec) 81 mg PO BID 30 Days Qty: 60 0RF celecoxib [Celebrex] 200 mg Capsule 200 mg PO BID 14 Days Qty: 28 0RF polyethylene glycol 3350 [Miralax] 17 gram powder in packet 17 g PO DAILY PRN (Reason: constipation) Qty: 5 0RF cefadroxil 500 mg capsule 500 mg PO BID Qty: 28 1RF oxycodone 5 mg tablet 5 - 10 mg PO Q6H PRN (Reason: pain) Qty: 30 0RF Rx Instructions: ongoing therapy, supervising dr rosa swanson. max 6 tabs in 24 hours Continued multivitamin Tablet 1 tab PO QAM levothyroxine 125 mcg Tablet 125 mcg PO QAM betamethasone dipropionate 0.05 % Cream 1 applic TOPICAL BID PRN (Reason: Rash) omeprazole 20 mg Capsule,Delayed Release(Dr/Ec) 20 mg PO HS zolpidem 10 mg Tablet 1 tab PO HS losartan 100 mg Tablet 100 mg PO QAM cholecalciferol (vitamin D3) [Vitamin D3] 1,000 unit Tablet 1,000 unit PO QAM Probiotic 3 billion cell Capsule 3,000 mmu cells PO QAM sertraline 50 mg Tablet 25 mg PO HS atenolol 50 mg Tablet 50 mg PO PM famotidine [Pepcid] 20 mg Tablet 20 mg PO QAM acetaminophen [Pain Reliever (acetaminophen)] 500 mg tablet 1,000 mg PO Q8 PRN (Reason: Pain) Changed oxycodone 5 mg Tablet 5 - 10 mg PO Q6H PRN (Reason: pain) Qty: 30 0RF Rx Instructions: ongoing therapy, supervising dr rosa swanson. max 6 tabs in 24 hours Krames/Other Patient Handouts: Knee Replacement Recovery at Home Admission Data Admit Date/Time: 11/28/22 11:49 Attending Provider: Gary Swanson Admit Provider: Gary Swanson Primary Care Provider: Gregoria Corral Other Providers: Jaylon Logan ; Meme Ferreira ; Juan A Gonzalez ; Kamran Mata ; Gary Davies ; Min Sanz ; Layton Parada ; Kinza Giron ; Sisi Welsh ; Isak Knutson ; Samuel Roman ; Lubna Christianson ; Luis Eduardo Saleh ; Florian Uribe ; Luna Zamora ; Jeanette Moulton ; Ana Maria Solis ; Iftikhar Herrmann ; Wilder Wetzel ; Lori Mercado ; Meme Wiggins ; Gita Davis ; Wojciech Butterfield ; Juan A Laird ; Heidi Tena ; Damon Santiago ; Milton Sofia ; Mirtha Das ; González Mckinnon ; Gregoria Brown ; Juan Diego Sidhu ; Kristal Iyer ; Bebo Hdz ; Ruel Schilling ; Mic Carreno ; Pablo Messina ; Olga Sanford Other Interventions: Discharge Summary Assessment (RN) Last Done: 11/29/22 12:41
== END 2022-11-29 14:16 | disposition home health service (06) ==
LOC: 3W 06:41 → ASU 06:41
DX: M17.12 Unilateral primary osteoarthritis, left knee; Z79.899 Other long term (current) drug therapy; Z20.822 Contact with and (suspected) exposure to COVID-19; Z86.16 Personal history of COVID-19; M25.762 Osteophyte, left knee; Z88.8 Allergy status to other drugs, medicaments and biological substances; Z88.6 Allergy status to analgesic agent; M65.9 Synovitis and tenosynovitis, unspecified